=== PATIENT | male | born 1960 | race Caucasian/White ===

== ENCOUNTER 2018-11-18 05:23 | Inpatient (IN) | payer OTHER ==
[2018-11-18] MEDS: VANCOMYCIN 1 GM 250 ML IVPB (06:24)
[2018-11-18] MEDS: LACTATED RINGER'S 1,000 ML IV* ×2 (06:24)
[2018-11-18] MEDS: POLYMYXIN/BACITRACIN 1L IRRIG (06:42)
[2018-11-18] MEDS ORDERED: GELATIN SIZE 100 SPONGE (06:42)
[2018-11-18] MEDS ORDERED: THROMBIN (BOVINE) 5,000 UNIT VIAL TP (06:42)
[2018-11-18] MEDS: BUPIVACAINE 0.25% (MPF) 30 ML INJ (06:42)
[2018-11-18] MEDS ORDERED: TRIMETHOBENZAMIDE 100 MG/ML VIAL IM ×2 (07:00→10:30)
[2018-11-18] MEDS ORDERED: MIDAZOLAM 1 MG/ML 2 ML INJ IV (07:00)
[2018-11-18] MEDS ORDERED: DIPHENHYDRAMINE 50 MG INJ IV (07:00)
[2018-11-18] MEDS ORDERED: FENTAnyl 50 MCG/ML VIAL IV ×3 (07:00)
[2018-11-18] MEDS ORDERED: LABETALOL HCL 20MG INJ IV (07:00)
[2018-11-18] MEDS ORDERED: IPRATROPIUM (NEB) 0.5 MG/2.5 ML AMP HHN (07:00)
[2018-11-18] MEDS ORDERED: hydrALAzine 20 MG INJ IV (07:00)
[2018-11-18] MEDS ORDERED: ALBUTEROL 0.083% (NEB) 2.5 MG/3 ML AMP HHN (07:00)
[2018-11-18] MEDS ORDERED: OXYCODONE/ACETAMINOPHEN (5/325) TAB PO ×2 (07:00)
[2018-11-18] MEDS ORDERED: HYDROmorphONE 1 MG/5 ML IV SYRINGE IV ×3 (07:00)
[2018-11-18] MEDS ORDERED: FENTAnyl 50 MCG/ML VIAL (07:03)
[2018-11-18] MEDS ORDERED: ROCURONIUM 50 MG INJ (07:03)
[2018-11-18] MEDS ORDERED: DEXAMETHASONE 4 MG/ML 5 ML INJ (07:03)
[2018-11-18] MEDS ORDERED: NEOSTIGMINE 3 MG/3 ML SYRINGE (07:03)
[2018-11-18] MEDS ORDERED: MIDAZOLAM 1 MG/ML 2 ML INJ (07:03)
[2018-11-18] MEDS ORDERED: CEFAZOLIN 1 GM INJ (07:03)
[2018-11-18] MEDS ORDERED: ONDANSETRON 4 MG INJ (07:03)
[2018-11-18] MEDS ORDERED: PROPOFOL 20 ML (07:03)
[2018-11-18] MEDS ORDERED: GLYCOPYRROLATE 0.4 MG INJ (07:03)
[2018-11-18] MEDS ORDERED: LABETALOL HCL 20MG INJ (07:33)
[2018-11-18] MEDS ORDERED: SUGAMMADEX SODIUM 200 MG/2 ML VIAL IV (09:41)
[2018-11-18] MEDS ORDERED: DIAZEPAM 5 MG TAB PO (10:30)
[2018-11-18] MEDS ORDERED: DIAZEPAM 5 MG/ML SYG IM (10:30)
[2018-11-18] MEDS ORDERED: ONDANSETRON 4 MG INJ IV (10:30)
[2018-11-18] MEDS ORDERED: CEPASTAT LOZENGE MT (10:30)
[2018-11-18] MEDS ORDERED: ACETAMINOPHEN 325 MG TAB PO (10:30)
[2018-11-18] MEDS ORDERED: PROCHLORPERAZINE 10 MG TAB PO (10:30)
[2018-11-18] MEDS ORDERED: NACL 0.9% 3 ML SYG IV (10:30)
[2018-11-18] MEDS ORDERED: NALOXONE (0.4 MG/ML) INJ IV (10:30)
[2018-11-18] MEDS ORDERED: AL HYDROX/MG HYDROX/SIMETH 30 ML CUP PO (10:30)
[2018-11-18] MEDS ORDERED: DIPHENHYDRAMINE 50 MG CAP PO (10:30)
[2018-11-18] MEDS: MEPERIDINE 25 MG INJ IV (10:54)
[2018-11-18] MEDS: ONDANSETRON 4 MG INJ IV (10:55)
[2018-11-18] MEDS: HYDROmorphONE 0.2 MG/ML PCA IV (11:14)
[2018-11-18] MEDS: EPHEDrine SULFATE 50 MG/5 ML SYG IV (11:32)
[2018-11-18] MEDS: SOD CHLORIDE 0.45% 1,000 ML IV ×2 (12:52→20:28)
[2018-11-18] MEDS: [UNRECOGNIZED DRUG - OTHER] XX ×2 (16:00→21:15)
[2018-11-18] MEDS: VANCOMYCIN 1 GM (PMX) 250 ML IVPB (19:27)
[2018-11-18] MEDS: RANITIDINE 150 MG TAB PO (20:58)
[2018-11-18] MEDS ORDERED: ZOLPIDEM 5 MG TAB PO (21:00)
[2018-11-19] MEDS: SOD CHLORIDE 0.45% 1,000 ML IV ×2 (01:15→06:28)
[2018-11-19 05:22] LABS: HEMATOCRIT 38.3 % (42.0-52.0); HEMOGLOBIN 12.4 g/dl (14.0-18.0)
[2018-11-19 05:49] LABS: ANION GAP 7 (5-13); BLOOD UREA NITROGEN 15 mg/dl (7-20); CALCIUM 8.4 mg/dl (8.4-10.2); CARBON DIOXIDE 29 mmol/L (21-31); CHLORIDE 104 mmol/L (97-110); CREATININE 0.83 mg/dl (0.61-1.24); Estimated GFR > 60 mL/min (>60); GLUCOSE 119 mg/dl (70-220); POTASSIUM 3.9 mmol/L (3.5-5.1); SODIUM 140 mmol/L (135-144)
[2018-11-19] MEDS: PANTOPRAZOLE (EC) 40 MG TAB PO (06:41)
[2018-11-19] MEDS: VANCOMYCIN 1 GM (PMX) 250 ML IVPB (07:09)
[2018-11-19] MEDS ORDERED: BETHANECHOL 25 MG TAB PO (08:00)
[2018-11-19] MEDS: RANITIDINE 150 MG TAB PO (08:27)
[2018-11-19] MEDS: DOCUSATE SODIUM 100 MG CAP PO (08:27)
[2018-11-19] MEDS: FERROUS SULFATE (EC) 325 MG TAB PO ×2 (08:28→13:59)
[2018-11-19] MEDS: ASCORBIC ACID 500 MG TAB PO (08:28)
[2018-11-19] MEDS: metFORMIN 500 MG TAB PO (08:28)
[2018-11-19] MEDS: NEBIVOLOL 5 MG TAB PO (08:29)
[2018-11-19] MEDS: BETHANECHOL 25 MG TAB PO (08:29)
[2018-11-19] MEDS ORDERED: NON-FORMULARY/PATIENT OWN MED (Canagliflozin (Invokana) 300 MG) PO (09:00)
[2018-11-19] MEDS: HYDROCODONE/APAP (5/325) TAB PO ×2 (10:41→14:00)
[2018-11-19 11:00] LABS: ADD UMIC NO; UR ASCORBIC ACID NEGATIVE (NEGATIVE); UR BILIRUBIN (Dip) NEGATIVE (NEGATIVE); UR BLOOD (Dip) NEGATIVE (NEGATIVE); UR CLARITY CLEAR (CLEAR); UR COLOR STRAW (YELLOW); UR GLUCOSE (Dip) 3+ mg/dL (NEGATIVE); UR KETONES (Dip) NEGATIVE (NEGATIVE); UR LEUKOCYTE ESTERASE (Dip) NEGATIVE Leu/ul (NEGATIVE); UR NITRITE (Dip) NEGATIVE (NEGATIVE); UR SPECIFIC GRAVITY (Dip) 1.011 (1.003-1.030); UR TOTAL PROTEIN (Dip) NEGATIVE (NEGATIVE); UR UROBILINOGEN (Dip) NEGATIVE (NEGATIVE)
== END 2018-11-19 14:58 | disposition home or self-care (01) | DRG 520 ==
LOC: REC 05:23 → MS1 11:27
PROVIDERS: Orthopaedic Surgery
PROC: 0SB20ZZ Excision of Lumbar Vertebral Disc, Open Approach (ICD-10-PCS; principal; 2018-11-18 07:00)
PROC: 0SB40ZZ Excision of Lumbosacral Disc, Open Approach (ICD-10-PCS; 2018-11-18 07:00)
PROC: 01NB0ZZ Release Lumbar Nerve, Open Approach (ICD-10-PCS; 2018-11-18 07:00)
PROC: 4A11X4G Monitoring of Peripheral Nervous Electrical Activity, Intraoperative, External Approach (ICD-10-PCS; 2018-11-18 07:00)
DX: M51.26 Other intervertebral disc displacement, lumbar region (principal); M48.061 Spinal stenosis, lumbar region without neurogenic claudication; E11.9 Type 2 diabetes mellitus without complications; I10 Essential (primary) hypertension; K21.9 Gastro-esophageal reflux disease without esophagitis; E66.9 Obesity, unspecified; M51.27 Other intervertebral disc displacement, lumbosacral region; Z68.34 Body mass index [BMI] 34.0-34.9, adult
CPT/HCPCS: 72020; 80048; 81003; 82962; 85014; 85018; 86850; 86900; 86901; 86920; 87086; 88304; 97116; 97161; 97530